=== PATIENT | male | born 2000 | race Caucasian/White ===

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

== ENCOUNTER → 2021-03-24 | Outpatient (CLI) | payer OTHER | LOC: M LABSMTC 12:52 | PROVIDERS: ATTEND Pediatrics | DX: Z20.822 Contact with and (suspected) exposure to COVID-19 (principal) ==